=== PATIENT | female | born 1990 | race African-American/Black ===

== ENCOUNTER 2018-09-20 09:04 | Inpatient (IN) ==
[2018-09-20 09:27] LABS: Basophils % 0.3 % (0.0-0.8); Eosinophils # 0.2 10*3/uL (0.0-0.87); Eosinophils % 1.5 % (0.00-10.9); Hematocrit 36.5 VOL% (35.7-47.0); Hemoglobin 11.3 GM/DL (12.0-16.0); Immature Granulocytes % 0.7 %; Immature Granulocytes Absolute 0.07 #; Lymphocytes # 4.5 10*3/uL (1.4-4.0); Lymphocytes % 42.4 % (21.3-54.2); Mean Corpuscular Volume 87.7 FL (87-102); Mean Platelet Volume 10.1 FL (9.6-12.0); Monocytes % 5.5 % (1.7-12.7); Neutrophils % 49.6 % (38.7-73.9); Platelet Count 315 T/CUMM (130-400); Red Blood Count 4.16 MC/CUMM (3.8-5.5); Red Cell Distribution Width 13.1 % (9.3-17.3); White Blood Count 10.5 T/CUMM (4-12)
[2018-09-20 09:36] LABS: INR 0.9; PT Patient Result 9.9 SECS; Partial Thromboplastin Time 23.8 SECS (0-40)
[2018-09-20 09:43] LABS: Alanine Aminotransferase 24 U/L (13-56); Albumin 3.3 G/DL (3.4-5.0); Alkaline Phosphatase 45 U/L (45-117); Amylase 137 U/L (25-115); Aspartate Amino Transferase 42 U/L (0-37); Bilirubin,Total < 0.39 MG/DL (0.2-1.0); Blood Urea Nitrogen 11 MG/DL (7-18); Glucose 95 MG/DL (74-106); Osmolality,Calculated 279.3 MOS/KG (273-304)
[2018-09-20] MEDS ORDERED: ONDANSETRON 4 MG/2 ML VIAL ONE ×2 (10:42→12:52)
[2018-09-20] MEDS ORDERED: MORPHINE 4 MG/1 ML VIAL ONE (10:43)
[2018-09-20] MEDS ORDERED: ONDANSETRON 4 MG/2 ML VIAL IV STA (10:47)
[2018-09-20] MEDS ORDERED: SODIUM CHLORIDE 0.9% 1,000 ML IV STA (10:47)
[2018-09-20] MEDS ORDERED: MORPHINE 4 MG/1 ML VIAL IV STA (10:47)
[2018-09-20] MEDS ORDERED: ceFAZolin 1,000 MG in SYRINGE 1 EACH IV ONE (10:48)
[2018-09-20] MEDS ORDERED: BISACODYL 5 MG TABLET PO PRN (10:49)
[2018-09-20] MEDS ORDERED: ACETAMINOPHEN 325 MG TABLET PO PRN (10:49)
[2018-09-20] MEDS ORDERED: HYDROmorphone 2 MG/1 ML VIAL IV PRN (10:49)
[2018-09-20] MEDS ORDERED: ceFAZolin 1,000 MG in SYRINGE 1 EACH IV STA (10:50)
[2018-09-20 11:35] LABS: Apearance,Urine CLEAR (Clear); Bacteria,Urine Occasional /HPF (Few); Barbiturates Screen,Urine Negative (Negative); Benzodiazepines Screen,Urine Negative (Negative); Bilirubin,Urine Negative (Negative); Blood, Urine Negative (Negative); Cannabinoid Screen,Urine Positive (Negative); Glucose,Urine (UA) Negative (Negative); Ketones,Urine Negative (Negative); Nitrite,Urine Negative (Negative); Opiate Screen,Urine Positive (Negative); Phencyclidine Screen,Urine Negative (Negative); Protein,Urine Negative; RBC,Urine 2 /HPF (0-4); Squamous Epithelial Cell,Urine Occasional /HPF (0-10); Urine Color Straw (Yellow); Urine Specific Gravity 1.053 (1.001-1.035); Urine Urobilinogen < 2.0 EU/DL (0.2-1.0); WBC,Urine 7 /HPF (0-6)
[2018-09-20] MEDS ORDERED: NEOMYCIN/POLYMYXIN/BACITRACIN OINT 28.4 GM TUBE TOP ONE (11:54)
[2018-09-20] MEDS: LACTATED RINGERS 1,000 ML IV SCH ×3 (12:00→21:52)
[2018-09-20] MEDS ORDERED: GENTAMICIN 80 MG/2 ML VIAL ONE (12:19)
[2018-09-20] MEDS ORDERED: MIDAZOLAM 2 MG/2 ML VIAL ONE (12:52)
[2018-09-20] MEDS ORDERED: DEXAMETHASONE 4 MG/1 ML VIAL ONE (12:52)
[2018-09-20] MEDS ORDERED: SEVOFLURANE 1 UNIT/15 MINUTE INH ONE (12:52)
[2018-09-20] MEDS ORDERED: PROPOFOL 200 MG/20 ML VIAL IV ONE (12:52)
[2018-09-20] MEDS ORDERED: fentaNYL 100 MCG/2 ML VIAL ONE (12:52)
[2018-09-20] MEDS ORDERED: KETOROLAC 30 MG/1 ML VIAL ONE (12:53)
[2018-09-20] MEDS ORDERED: NEOSTIGMINE 10 MG/10 ML VIAL ONE (12:53)
[2018-09-20] MEDS ORDERED: ROCURONIUM 100 MG/10 ML VIAL IV ONE (12:53)
[2018-09-20] MEDS ORDERED: PHENYLEPHRINE 1 MG/10 ML SYRINGE IV ONE (12:53)
[2018-09-20] MEDS ORDERED: GLYCOPYRROLATE 0.4 MG/2 ML VIAL ONE (12:53)
[2018-09-20] MEDS ORDERED: GENTAMICIN INJ 80 MG in PREMIX 1 EACH IV SCH (13:58)
[2018-09-20] MEDS ORDERED: GENTAMICIN INJ 120 MG in PREMIX 1 EACH IV ONE (14:30)
[2018-09-20] MEDS: HYDROmorphone 2 MG/1 ML VIAL IV PRN (14:44)
[2018-09-20] MEDS ORDERED: GENTAMICIN 0.3% OPH OINT 3.5 GM TUBE BOTH EYES PRN (19:35)
[2018-09-20] MEDS ORDERED: GENTAMICIN 0.3% OPH SOLN 5 ML BOTTLE BOTH EYES PRN (19:45)
[2018-09-20] MEDS: ceFAZolin 1,000 MG in SYRINGE 1 EACH IV SCH (21:11)
[2018-09-21] MEDS: LACTATED RINGERS 1,000 ML IV SCH ×2 (03:03→11:49)
[2018-09-21] MEDS: HYDROmorphone 2 MG/1 ML VIAL IV PRN ×2 (03:03→07:20)
[2018-09-21] MEDS: ceFAZolin 1,000 MG in SYRINGE 1 EACH IV SCH ×3 (06:45→20:49)
[2018-09-21] MEDS: PANTOPRAZOLE 40 MG TABLET PO SCH (09:24)
[2018-09-21] MEDS: ONDANSETRON 4 MG/2 ML VIAL IV PRN (09:27)
[2018-09-21] MEDS: CHLORHEXIDINE 4% SOLN 118 ML BOTTLE TOP SCH (11:46)
[2018-09-21] MEDS: GENTAMICIN INJ 240 MG in SODIUM CHLORIDE 0.9% 100 ML IV SCH (15:27)
[2018-09-21] MEDS: KETOROLAC 10 MG TABLET PO PRN (20:48)
[2018-09-22] MEDS: HYDROmorphone 2 MG/1 ML VIAL IV PRN ×4 (01:17→20:47)
[2018-09-22] MEDS: LACTATED RINGERS 1,000 ML IV SCH ×5 (05:06→22:09)
[2018-09-22] MEDS: ceFAZolin 1,000 MG in SYRINGE 1 EACH IV SCH ×3 (05:55→20:46)
[2018-09-22 08:25] LABS: Basophils % 0.1 % (0.0-0.8); Eosinophils # 0.1 10*3/uL (0.0-0.87); Hematocrit 31.2 VOL% (35.7-47.0); Hemoglobin 9.6 GM/DL (12.0-16.0); Immature Granulocytes % 0.3 %; Immature Granulocytes Absolute 0.02 #; Lymphocytes # 3.7 10*3/uL (1.4-4.0); Lymphocytes % 51.1 % (21.3-54.2); Mean Corpuscular HGB Conc 30.8 GM/DL (32-36); Mean Corpuscular Volume 88.1 FL (87-102); Mean Platelet Volume 10.5 FL (9.6-12.0); Neutrophils % 39.5 % (38.7-73.9); Platelet Count 259 T/CUMM (130-400); Red Blood Count 3.54 MC/CUMM (3.8-5.5); Red Cell Distribution Width 13.2 % (9.3-17.3); White Blood Count 7.2 T/CUMM (4-12)
[2018-09-22] MEDS: ONDANSETRON 4 MG/2 ML VIAL IV PRN (10:01)
[2018-09-22] MEDS: PANTOPRAZOLE 40 MG TABLET PO SCH (10:07)
[2018-09-22] MEDS: CHLORHEXIDINE 4% SOLN 118 ML BOTTLE TOP SCH (13:30)
[2018-09-22] MEDS: GENTAMICIN INJ 240 MG in SODIUM CHLORIDE 0.9% 100 ML IV SCH (18:43)
[2018-09-22] MEDS: KETOROLAC 10 MG TABLET PO PRN (22:09)
[2018-09-23] MEDS: HYDROmorphone 2 MG/1 ML VIAL IV PRN ×3 (00:10→08:08)
[2018-09-23] MEDS: ceFAZolin 1,000 MG in SYRINGE 1 EACH IV SCH (05:16)
[2018-09-23] MEDS: KETOROLAC 10 MG TABLET PO PRN (05:16)
[2018-09-23] MEDS: LACTATED RINGERS 1,000 ML IV SCH ×2 (07:30→11:00)
[2018-09-23] MEDS: PANTOPRAZOLE 40 MG TABLET PO SCH (09:34)
[2018-09-23] MEDS ORDERED: NEOMYCIN/POLYMYXIN/BACITRACIN OINT 0.9 GM PACK TOP SCH (11:20)
[2018-09-23] MEDS: CHLORHEXIDINE 4% SOLN 118 ML BOTTLE TOP SCH (11:27)
[2018-09-23 12:10] VITALS: BP 113/71
== END 2018-09-23 12:10 | disposition home or self-care (01) | DRG 902 ==
LOC: N.ED 09:04 → N.EDINP 10:49 → N.3E 13:34
PROVIDERS: ADMIT Surgery; ATTEND Surgery